=== PATIENT | male | born 1940 | race Caucasian/White ===

== ENCOUNTER 2018-04-02 08:51 | Emergency (ER) | payer OTHER ==
[~2018-04-02] VITALS: Ht 165.1 cm; Wt 75.0 kg
[~2018-04-02 08:51] MED LIST: LORA10TA7 PO; TERA2 PO
[2018-04-02] MEDS ORDERED: MONT10TA21 PO (09:05)
[2018-04-02] MEDS ORDERED: SIMV-260 PO (09:05)
[2018-04-02] MEDS ORDERED: METO25 PO (09:05)
[2018-04-02] MEDS ORDERED: ASPI-1182 PO (09:05)
[2018-04-02 10:28] VITALS: BP 126/64
[2018-04-02] MEDS ORDERED: CYCLOBENZAPRINE HCL 10 MG TABLET PO ONE (10:30)
[2018-04-02] MEDS ORDERED: LIDOCAINE HCL 5% TRANSDERMAL PATCH TD ONE (10:30)
[2018-04-02] MEDS ORDERED: ACETAMINOPHEN 500 MG TABLET PO ONE (10:30)
== END 2018-04-02 12:35 | disposition home or self-care (01) ==
LOC: EMS 08:53
DX: M54.5 Low back pain (principal); E78.00 Pure hypercholesterolemia, unspecified; I10 Essential (primary) hypertension; J45.909 Unspecified asthma, uncomplicated; Z79.899 Other long term (current) drug therapy; Z79.82 Long term (current) use of aspirin; W06.XXXA Fall from bed, initial encounter; Y93.89 Activity, other specified; Y92.89 Other specified places as the place of occurrence of the external cause; Y99.8 Other external cause status
CPT/HCPCS: 72100; 99284